=== PATIENT | female | born 2000 | race Caucasian/White ===

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

== ENCOUNTER 2019-04-03 17:59 | Emergency (ER) | payer SELFPAY ==
--- NOTE | 2019-04-03 19:24 | ER ---
Nurse's Notes [facility] Name: Yen Rojas Age: 19 yrs Sex: Female : 2000 Arrival Date: 04/03/2019 Time: 18:01 Bed 24 Private MD: Diagnosis: Acute upper respiratory infection, unspecified Presentation: 04/03 18:02 Presenting complaint: Patient states: nasal congestion, chills, congestion, non sv productive cough x 2 days. Transition of care: patient was not received from another setting of care. Onset of symptoms was April 01, 2019. Care prior to arrival: None. 18:02 Method Of Arrival: Ambulatory sv 18:02 Acuity: JONNY 4 sv 19:00 Risk Assessment: Do you want to hurt yourself or someone else? Patient reports no iw desire to harm self or others. Initial Sepsis Screen: Does the patient meet any 2 criteria? No. Patient's initial sepsis screen is negative. Does the patient have a suspected source of infection? No. Patient's initial sepsis screen is negative. Triage Assessment: 19:00 General: Appears in no apparent distress. Behavior is calm. Respiratory: Airway is iw patent. 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 - Social history:: Smoking status: . - Ebola Screening: : Patient negative for fever greater than or equal to 101.5 degrees Fahrenheit, and additional compatible Ebola Virus Disease symptoms Patient denies exposure to infectious person Patient denies travel to an Ebola-affected area in the 21 days before illness onset No symptoms or risks identified at this time. Screenin:35 Abuse screen: Denies threats or abuse. Denies injuries from another. Nutritional iw screening: No deficits noted. Tuberculosis screening: No symptoms or risk factors identified. Fall Risk None identified. Assessment: 19:00 General: Appears in no apparent distress. Behavior is calm, cooperative. Pain: Denies iw pain. Neuro: Level of Consciousness is awake, alert, obeys commands, Oriented to person, place, time, situation, Moves all extremities. Full function. Cardiovascular: Capillary refill < 3 seconds in bilateral fingers Patient's skin is warm and dry. Respiratory: Reports cough that is Airway is patent Breath sounds are clear bilaterally. Derm: Skin is intact, is healthy with good turgor. Musculoskeletal: Range of motion: intact in all extremities. Vital Signs: 18:03 BP 117 / 66; Pulse 87; Resp 16; Temp 98.4(TE); Pulse Ox 97% ; Weight 68.04 kg; Height 5 sv ft. 1 in. (154.94 cm); 18:03 Body Mass Index 28.34 (68.04 kg, 154.94 cm) sv ED Course: 18:01 Patient arrived in ED. as 18:02 Arm band placed on. sv 18:03 Triage completed. 18:06 Ubaldo Villegas PA is PHCP. [facility] 18:06 Remi Fernández MD is Attending Physician. [facility] 18:12 Jami Gregory, RN is Primary Nurse. iw 18:20 Bed in low position. Call light in reach. Side rails up X 1. Verbal reassurance given. jp3 Pulse ox on. NIBP on. 18:20 Flu and/or RSV swab sent to lab. Strep swab sent to lab. Patient maintains SpO2 jp3 saturation greater than 95% on room air. 19:35 No provider procedures requiring assistance completed. Patient did not have IV access iw during this emergency room visit. Administered Medications: No medications were administered Outcome: 19:24 Discharge ordered by . [facility] 19:35 Discharged to home ambulatory. iw 19:35 Condition: good 19:35 Discharge instructions given to patient, Instructed on discharge instructions, follow up and referral plans. medication usage, Demonstrated understanding of instructions, follow-up care, medications, Prescriptions given X 1. 19:36 Patient left the ED. iw Signatures: Marlyn Rodas, RN RN Ubaldo Villegas PA PA jmm Martinez, Amelia as Jami Gregory, RN RN Negrito Khan jp3 Corrections: (The following items were deleted from the chart) 18:05 18:03 Resp 16bpm; Temp 98.4F Temporal; 68.04 kg; Height 5 ft. 1 in.; BMI: 28.3; sv sv
--- NOTE | 2019-04-03 19:24 | EDPHYS ---
Physician Documentation [facility] Name: Yen Rojas Age: 19 yrs Sex: Female : 2000 Arrival Date: 04/03/2019 Time: 18:01 Bed 24 Private MD: ED Physician Remi Fernández HPI: 04/03 18:26 This 19 yrs old Female presents to ER via Ambulatory with complaints of jmm Cough, Congestion. 18:26 The patient or guardian reports cough. Onset: The symptoms/episode began/occurred jmm gradually, 2 day(s) ago. Modifying factors: The symptoms are alleviated by nothing, the symptoms are aggravated by nothing. Associated signs and symptoms: Pertinent positives: fever. This is a 19 year old female with no chronic medical conditions that presents to the ED with complaints of cough, congestion, fever beginning 2 days ago. Grandmother has similar symptoms and was recently diagnosed with bronchitis. . VP RESPIRATORY: 23:19 LMP N/A - iw Historical: - Allergies: 18:03 PENICILLINS; sv - PMHx: 18:03 None; sv - PSHx: 18:03 None; sv - Immunization history:: Adult Immunizations. - Social history:: Smoking status: . - Ebola Screening: : Patient negative for fever greater than or equal to 101.5 degrees Fahrenheit, and additional compatible Ebola Virus Disease symptoms Patient denies exposure to infectious person Patient denies travel to an Ebola-affected area in the 21 days before illness onset No symptoms or risks identified at this time. ROS: 18:26 Cardiovascular: Negative for chest pain, palpitations, and edema, Abdomen/GI: Negative jmm for abdominal pain, nausea, vomiting, diarrhea, and constipation. 18:26 Constitutional: Positive for body aches, fatigue, fever. 18:26 Respiratory: Positive for cough. 18:26 All other systems are negative. Exam: 18:26 Constitutional: This is a well developed, well nourished patient who is awake, alert, jmm and in no acute distress. Head/Face: atraumatic. Eyes: EOMI, no conjunctival erythema appreciated ENT: Moist Mucus Membranes Neck: Trachea midline, Supple Chest/axilla: Normal chest wall appearance and motion. Cardiovascular: Regular rate and rhythm. No edema appreciated Respiratory: Normal respirations, no respiratory distress appreciated Abdomen/GI: Non distended, soft Back: Normal ROM Skin: General appearance color normal MS/ Extremity: Moves all extremities, no obvious deformities appreciated, no edema noted to the lower extremities Neuro: Awake and alert, normal gait Psych: Behavior is normal, Mood is normal, Patient is cooperative and pleasant 18:26 ENT: Posterior pharynx: erythema, that is mild. Vital Signs: 18:03 BP 117 / 66; Pulse 87; Resp 16; Temp 98.4(TE); Pulse Ox 97% ; Weight 68.04 kg; Height 5 sv ft. 1 in. (154.94 cm); 18:03 Body Mass Index 28.34 (68.04 kg, 154.94 cm) sv MDM: 18:23 Patient medically screened. [facility] 19:23 Data reviewed: vital signs, nurses notes. Counseling: I had a detailed discussion with [facility] the patient and/or guardian regarding: the historical points, exam findings, and any diagnostic results supporting the discharge/admit diagnosis, lab results, the need for outpatient follow up, to return to the emergency department if symptoms worsen or persist or if there are any questions or concerns that arise at home. ED course: Patient is alert and non toxic in appearance in the ED. Patient advised to follow up with pcp and otherwise given strict return precautions. Patient understood and agrees with the plan of care. . 04/03 18:11 Order name: Flu; Complete Time: 19:23 [facility] 04/03 18:11 Order name: Strep; Complete Time: 18:36 [facility] 04/03 18:34 Order name: Throat Culture EDMS Administered Medications: No medications were administered Disposition: 04/04 07:18 Co-signature as Attending Physician, Remi Fernández MD. rn Disposition: 04/03/19 19:24 Discharged to Home. Impression: Acute upper respiratory infection, unspecified. - Condition is Stable. - Discharge Instructions: Upper Respiratory Infection, Adult. - Prescriptions for Zithromax Z- Rufus 250 mg Oral Tablet - take 1 tablet by ORAL route as directed for 5 days Day 1 - take two (2) tablets one time. Day 2, 3, 4 , 5 take one (1) tablet once daily.; 6 tablet. Medrol (Rufus) 4 mg Oral Tablets, Dose Pack - take 1 tablet by ORAL route as directed - follow package instructions; 1 packet. - Medication Reconciliation Form, Thank You Letter, Antibiotic Education, Prescription Opioid Use form. - Follow up: Private Physician; When: 2 - 3 days; Reason: Recheck today's complaints, Continuance of care, Re-evaluation by your physician. Signatures: Dispatcher [employer] Marlyn Regan RN RN Ubaldo Hicks PA PA jmm Williams, Irene, RN RN iw Nieto, Roman, MD MD rn admissions: (The following items were deleted from the chart) 04/03 19:36 19:24 04/03/2019 19:24 Discharged to Home. Impression: Acute upper respiratory iw infection, unspecified. Condition is Stable. Forms are Medication Reconciliation Form, Thank You Letter, Antibiotic Education, Prescription Opioid Use. Follow up: Private Physician; When: 2 - 3 days; Reason: Recheck today's complaints, Continuance of care, Re-evaluation by your physician. doris
[2019-04-03] MEDS ORDERED: AZITHROMYCIN 250 MG TAB ONE (19:37)
== END 2019-04-03 19:36 | disposition home or self-care (01) ==
LOC: ER 17:59
DX: J06.9 Acute upper respiratory infection, unspecified (principal); Z88.0 Allergy status to penicillin
CPT/HCPCS: 87070; 87081; 87804; 99284

== ENCOUNTER 2019-05-25 13:07 | Emergency (ER) | payer SELFPAY ==
[2019-05-25 14:07] LABS: Absolute Lymphocytes (CBC) 1.9 K/uL (0.7-4.9); Basophils % 0.8 % (0-1.3); Hematocrit 41.5 % (36.0-45.0); Lymphocytes % 28.5 % (15.3-44.8); MPV 10.1 fL (7.6-11.3); RBC Red Blood Cell Count 4.66 M/uL (3.86-4.86)
[2019-05-25 14:16] LABS: Protime INR 1.01
[2019-05-25 14:21] LABS: ALT/SGPT 24 U/L (12-78); AST/SGOT 17 U/L (15-37); Albumin 4.3 g/dL (3.4-5.0); Alkaline Phosphatase 76 U/L (45-117); BUN Blood Urea Nitrogen 5 mg/dL (7-18); Bicarbonate 27 mmol/L (21-32); Bilirubin Total 0.4 mg/dL (0.2-1.0); Glucose Level 120 mg/dL (74-106); Potassium 3.2 mmol/L (3.5-5.1); Protein, Total 7.9 g/dL (6.4-8.2); Sodium Level 141 mmol/L (136-145)
[2019-05-25] MEDS ORDERED: ACETAMINOPHEN 500 MG TAB ONE (15:05)
--- NOTE | 2019-05-25 15:08 | ER ---
Nurse's Notes [facility] Name: Yen Rojas Age: 19 yrs Sex: Female : 2000 Arrival Date: 05/25/2019 Time: 13:09 Bed 5 Private MD: Diagnosis: Other abnormal uterine and vaginal bleeding Presentation: 05/24 13:19 Chief complaint: Patient states: Heavy bleeding with clots x 3 days. Was on Depo and ca1 stopped 6 months ago. Reports no menstrual periods since Depo and after stopping until today. Reports abdominal cramps and nausea. Coronavirus screen: The patient has NOT traveled to [place] in the past 14 days. Ebola Screen: Patient negative for fever greater than or equal to 101.5 degrees Fahrenheit, and additional compatible Ebola Virus Disease symptoms Patient denies exposure to infectious person. Patient denies travel to an Ebola-affected area in the 21 days before illness onset. No symptoms or risks identified at this time. Initial Sepsis Screen: Does the patient meet any 2 criteria? No. Patient's initial sepsis screen is negative. Does the patient have a suspected source of infection? No. Patient's initial sepsis screen is negative. Risk Assessment: Do you want to hurt yourself or someone else? Patient reports no desire to harm self or others. Onset of symptoms was May 25, 2019. 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 - Social history:: Smoking status: Patient reports the use of cigarette tobacco products, smokes one-half pack cigarettes per day, Patient/guardian denies using alcohol, street drugs, The patient lives with family. - Family history:: not pertinent. Screenin:25 Abuse screen: Denies threats or abuse. Nutritional screening: No deficits noted. rb1 Tuberculosis screening: No symptoms or risk factors identified. Fall Risk None identified. Assessment: 13:25 General: Appears in no apparent distress. comfortable, Behavior is calm, cooperative. rb1 Pain: Complains of pain in abdomen Quality of pain is described as crampy. Neuro: Level of Consciousness is awake, alert, obeys commands, Oriented to person, place, time, situation. Cardiovascular: Capillary refill < 3 seconds is brisk in bilateral fingers. Respiratory: Airway is patent Respiratory effort is even, unlabored, Respiratory pattern is regular, symmetrical. GI: No signs and/or symptoms were reported involving the gastrointestinal system. : Reports vaginal bleeding that is with clots, heavy flow since x 3 days. Derm: Skin is pink, warm \T\ dry. 14:20 Reassessment: Patient appears in no apparent distress at this time. No changes from rb1 previously documented assessment. Family at the bedside. 15:10 Reassessment: Patient appears in no apparent distress at this time. Patient and/or rb1 family updated on plan of care and expected duration. Pain level reassessed. Patient is alert, oriented x 3, equal unlabored respirations, skin warm/dry/pink. Vital Signs: 13:19 BP 134 / 90; Pulse 80; Resp 17 S; Temp 97.1(O); Pulse Ox 100% on R/A; Weight 61.23 kg ca1 (R); Height 5 ft. 1 in. (154.94 cm) (R); 14:20 BP 115 / 91; Pulse 79; Resp 16; Pulse Ox 99% on R/A; rb1 15:10 BP 127 / 88; Pulse 74; Resp 15; Pulse Ox 99% on R/A; rb1 13:19 Body Mass Index 25.51 (61.23 kg, 154.94 cm) ca1 ED Course: 13:09 Patient arrived in ED. ag5 13:22 Triage completed. ca1 13:22 Arm band placed on right wrist. ca1 13:25 Patient has correct armband on for positive identification. Bed in low position. Call rb1 light in reach. Side rails up X 1. Pulse ox on. NIBP on. Warm blanket given. 13:27 Renuka Garcia MD is Attending Physician. ma2 13:39 Chari Cruz, ANIYAH is Primary Nurse. rb1 13:54 Initial lab(s) drawn, by me, sent to lab. T\T\S collected, blood band applied to patient. em1 Inserted saline lock: 20 gauge in right antecubital area, using aseptic technique. Blood collected. 15:07 Cody Coombs MD is Referral Physician. ma2 15:20 No provider procedures requiring assistance completed. IV discontinued, intact, rb1 bleeding controlled, No redness/swelling at site. Pressure dressing applied. Administered Medications: 15:03 Drug: Tylenol 1000 mg Route: PO; rb1 15:18 Follow up: Response: No adverse reaction rb1 Outcome: 15:08 Discharge ordered by MD. ma2 15:20 Discharged to home ambulatory, with family. rb1 15:20 Condition: stable 15:20 Discharge instructions given to patient, Instructed on discharge instructions, follow up and referral plans. medication usage, Demonstrated understanding of instructions, follow-up care, medications, Prescriptions given X 1. 15:21 Patient left the ED. rb1 Signatures: Papito Hickey em1 Chari Cruz, RN RN rb1 Renuka Garcia MD MD id2 Marichuy Davila RN RN ca1 Marleen Mendoza ag5
--- NOTE | 2019-05-25 15:09 | EDPHYS ---
Physician Documentation [facility] Name: Yen Rojas Age: 19 yrs Sex: Female : 2000 Arrival Date: 05/25/2019 Time: 13:09 Bed 5 Private MD: ED Physician Renuka Garcia HPI: 05/24 15:06 This 19 yrs old Female presents to ER via Ambulatory with complaints of ma2 Vaginal Bleeding. 15:06 Onset: The symptoms/episode began/occurred gradually, 3 day(s) ago. Associated signs ma2 and symptoms: Pertinent negatives: diarrhea, dysuria, hematuria, urinary frequency, vaginal bleeding. Severity of symptoms: At their worst the symptoms were mild, in the emergency department the symptoms have improved. The patient's method of control includes was on deposhot until 4 wks ago, she stopped, and took plan b 4 days ago . The patient has not experienced similar symptoms in the past. 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 - Social history:: Smoking status: Patient reports the use of cigarette tobacco products, smokes one-half pack cigarettes per day, Patient/guardian denies using alcohol, street drugs, The patient lives with family. - Family history:: not pertinent. ROS: 15:06 Positive for Negative for urinary symptoms. ma2 15:06 Constitutional: Negative for fever, chills, and weight loss. 15:06 All other systems are negative. Exam: 15:06 Constitutional: This is a well developed, well nourished patient who is awake, alert, ma2 and in no acute distress. Chest/axilla: Normal chest wall appearance and motion. Nontender with no deformity. No lesions are appreciated. Cardiovascular: Regular rate and rhythm with a normal S1 and S2. No gallops, murmurs, or rubs. Normal PMI, no JVD. No pulse deficits. Respiratory: Lungs have equal breath sounds bilaterally, clear to auscultation and percussion. No rales, rhonchi or wheezes noted. No increased work of breathing, no retractions or nasal flaring. Abdomen/GI: Soft, non-tender, with normal bowel sounds. No distension or tympany. No guarding or rebound. No evidence of tenderness throughout. Back: No spinal tenderness. No costovertebral tenderness. Full range of motion. Skin: Warm, dry with normal turgor. Normal color with no rashes, no lesions, and no evidence of cellulitis. MS/ Extremity: Pulses equal, no cyanosis. Neurovascular intact. Full, normal range of motion. Vital Signs: 13:19 BP 134 / 90; Pulse 80; Resp 17 S; Temp 97.1(O); Pulse Ox 100% on R/A; Weight 61.23 kg ca1 (R); Height 5 ft. 1 in. (154.94 cm) (R); 14:20 BP 115 / 91; Pulse 79; Resp 16; Pulse Ox 99% on R/A; rb1 15:10 BP 127 / 88; Pulse 74; Resp 15; Pulse Ox 99% on R/A; rb1 13:19 Body Mass Index 25.51 (61.23 kg, 154.94 cm) ca1 MDM: 13:27 Patient medically screened. ma2 15:06 Differential diagnosis: dysfunctional uterine bleeding, menorrhea, Data reviewed: vital ne2 signs, nurses notes. Counseling: I had a detailed discussion with the patient and/or guardian regarding: the historical points, exam findings, and any diagnostic results supporting the discharge/admit diagnosis, the presence of at least one elevated blood pressure reading (>120/80) during this emergency department visit, the need for outpatient follow up. Response to treatment: the patient's symptoms have markedly improved after treatment. 05/24 13:28 Order name: CBC with Diff; Complete Time: 15:00 ne2 05/24 13:28 Order name: Protime (+inr); Complete Time: 15:00 ne2 05/24 13:28 Order name: Ptt, Activated; Complete Time: 15:00 ma2 05/24 13:28 Order name: CMP ma2 05/24 13:28 Order name: Test, Serum; Complete Time: 15:00 ma2 05/24 13:28 Order name: HCG-Quantitative ne2 05/24 13:28 Order name: Urine Dipstick-Ancillary (obtain specimen); Complete Time: 14:05 [facility] 05/24 13:28 Order name: Type And Screen; Complete Time: 15:00 [facility] 05/24 14:05 Order name: Urine Dipstick--Ancillary (enter results) em1 05/24 14:05 Order name: Urine --Ancillary (enter results) em1 Administered Medications: 15:03 Drug: Tylenol 1000 mg Route: PO; rb1 15:18 Follow up: Response: No adverse reaction rb1 Disposition: 05/25/19 15:08 Discharged to Home. Impression: Other abnormal uterine and vaginal bleeding. - Condition is Stable. - Discharge Instructions: Abnormal Uterine Bleeding. - Prescriptions for Provera 5 mg Oral tablet - take 1 tablet by ORAL route once daily for 14 days; 14 tablet. - Medication Reconciliation Form, Thank You Letter, Antibiotic Education, Prescription Opioid Use form. - Follow up: Cody Coombs MD; When: Tomorrow; Reason: Continuance of care. Signatures: Dispatcher [employer] Chari Tucker RN RN rb1 Renuka Garcia MD MD ma2 Marichuy Davila RN RN ca1 Corrections: (The following items were deleted from the chart) 15:21 15:08 05/25/2019 15:08 Discharged to Home. Impression: Other abnormal uterine and rb1 vaginal bleeding. Condition is Stable. Forms are Medication Reconciliation Form, Thank You Letter, Antibiotic Education, Prescription Opioid Use. Follow up: Cody Coombs; When: Tomorrow; Reason: Continuance of care. ma2
[2019-05-25 15:59] LABS: HCG, Quantitative < 1 mIU/mL (1-3)
[2019-05-25 16:00] VITALS: TEMP 97.1
[2019-05-25 16:01] VITALS: O2SAT 99
[2019-05-25 16:02] VITALS: BP 127/88
[2019-05-25 17:48] LABS: Urine Blood 3+ (NEG); Urine Glucose NEGATIVE (NEG); Urine Protein NEGATIVE (NEG)
== END 2019-05-25 15:21 | disposition home or self-care (01) ==
LOC: ER 13:07
DX: N93.8 Other specified abnormal uterine and vaginal bleeding (principal); F17.210 Nicotine dependence, cigarettes, uncomplicated; Z88.0 Allergy status to penicillin
CPT/HCPCS: 36415; 80053; 81003; 81025; 84702; 84703; 85025; 85610; 85730; 86850; 86900; 86901; 99284

== ENCOUNTER 2019-07-12 01:10 | Emergency (ER) | payer SELFPAY ==
--- NOTE | 2019-07-12 01:42 | ER ---
Nurse's Notes [facility] Name: Yen Rojas Age: 19 yrs Sex: Female : 2000 Arrival Date: 07/12/2019 Time: 01:12 Bed 27 Private MD: Diagnosis: Acute pharyngitis Presentation: 07/11 01:24 Chief complaint: Patient states: SORE THROAT FOR TWO DAYS. NO FEVER BUT COMPLAINS OF rv CHILLS. DENIES COUGH OR SOB, NAUSEA AND VOMITING. Coronavirus screen: Proceed with normal triage. Ebola Screen: No symptoms or risks identified at this time. Initial Sepsis Screen: Does the patient meet any 2 criteria? No. Patient's initial sepsis screen is negative. Does the patient have a suspected source of infection? No. Patient's initial sepsis screen is negative. Risk Assessment: Do you want to hurt yourself or someone else? Patient reports no desire to harm self or others. Onset of symptoms was July 10, 2019 at 08:00. 01:24 Method Of Arrival: Ambulatory rv 01:24 Acuity: JONNY 4 rv Triage Assessment: :26 General: Appears uncomfortable, Behavior is calm, cooperative. Pain: Complains of pain rv in THROAT. EENT: Throat is reddened bilaterally. Neuro: Level of Consciousness is awake, alert, obeys commands, Oriented to person, place, time, situation. Cardiovascular: Patient's skin is warm and dry. Respiratory: Airway is patent Breath sounds are clear bilaterally. Derm: Skin is intact. DIRECTOR SYSTEMS: 01: LMP 06/21/2019 rv Historical: - Allergies: : PENICILLINS; rv - Home Meds: : None [Active]; rv - PMHx: : None; rv - PSHx: : None; rv - Immunization history:: Adult Immunizations up to date. - Social history:: Smoking status: Patient reports the use of cigarette tobacco products, smokes one-half pack cigarettes per day. Screenin:28 Abuse screen: Denies threats or abuse. Denies injuries from another. Nutritional rv screening: No deficits noted. Tuberculosis screening: No symptoms or risk factors identified. Fall Risk None identified. Assessment: : Respiratory: Respiratory effort is even, unlabored. rv Vital Signs: BP 114 / 84; Pulse 87; Resp 16; Temp 98.8; Pulse Ox 98% ; Weight 61.23 kg; Height 5 ft. rv 1 in. (154.94 cm); Pain 6/10; 02:14 BP 119 / 79; Pulse 89; Resp 17; Temp 98.5; Pulse Ox 99% on R/A; rv 01:24 Body Mass Index 25.51 (61.23 kg, 154.94 cm) rv ED Course: 01:12 Patient arrived in ED. ds1 01:14 Ubaldo Villegas PA is PHCP. m 01:14 Wagner Dominguez MD is Attending Physician. m 01:17 Wil Mahoney, ANIYAH is Primary Nurse. rv 01:26 Triage completed. rv 01:26 Arm band placed on Patient placed in the treatment room, on a stretcher, Patient rv notified of wait time. 01:28 Patient has correct armband on for positive identification. Pulse ox on. NIBP on. rv 01:28 No provider procedures requiring assistance completed. Strep swab sent to lab. Patient rv did not have IV access during this emergency room visit. Administered Medications: 01:46 Drug: Zofran (Ondansetron) 4 mg Route: PO; rv 02:13 Follow up: Response: No adverse reaction rv 01:46 Drug: Tylenol 650 mg Route: PO; rv 02:13 Follow up: Response: No adverse reaction rv 01:46 Drug: Decadron 10 mg Route: IM; Site: right deltoid; rv 02:13 Follow up: Response: No adverse reaction rv 02:03 Drug: Clindamycin 300 mg Route: PO; rv 02:13 Follow up: Response: Medication administered at discharge. rv Outcome: 01:42 Discharge ordered by . jmm 02:14 Discharged to home ambulatory. rv 02:14 Condition: good 02:14 Discharge instructions given to patient, Instructed on discharge instructions, follow up and referral plans. medication usage, Demonstrated understanding of instructions, follow-up care, medications, Prescriptions given X 1. 02:14 Patient left the ED. rv Signatures: Ubaldo Villegas PA PA jmm Sanford, Demi ds1 Wil Mahoney, RN RN rv
--- NOTE | 2019-07-12 01:42 | EDPHYS ---
Physician Documentation [facility] Name: Yen Rojas Age: 19 yrs Sex: Female : 2000 Arrival Date: 07/12/2019 Time: 01:12 Bed 27 Private MD: ED Physician Wagner Dominguez HPI: 07/11 01:37 This 19 yrs old Female presents to ER via Ambulatory with complaints of Sore jmm Throat. 01:37 The patient presents with sore throat. Onset: The symptoms/episode began/occurred jmm gradually, 2 day(s) ago. Modifying factors: The symptoms are alleviated by nothing, the symptoms are aggravated by fluids, foods. Associated signs and symptoms: Pertinent positives: chills. This is a 19 year old female with no chronic medical conditions that presents to the ED with complaints of sore throat, chills beginning 2 days ago. Patient states having difficulty with food and fluids. . 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 - Social history:: Smoking status: Patient reports the use of cigarette tobacco products, smokes one-half pack cigarettes per day. ROS: 01:37 Eyes: Negative for injury, pain, redness, and discharge. jmm 01:37 Constitutional: Positive for body aches, chills. 01:37 ENT: Positive for sore throat. 01:37 All other systems are negative. Exam: 01:37 Constitutional: This is a well developed, well nourished patient who is awake, alert, jmm and in no acute distress. Head/Face: atraumatic. Eyes: EOMI, no conjunctival erythema appreciated 01:37 Chest/axilla: Normal chest wall appearance and motion. Cardiovascular: Regular rate and rhythm. No edema appreciated Respiratory: Normal respirations, no respiratory distress appreciated Abdomen/GI: Non distended, soft Back: Normal ROM Skin: General appearance color normal MS/ Extremity: Moves all extremities, no obvious deformities appreciated, no edema noted to the lower extremities Neuro: Awake and alert, normal gait Psych: Behavior is normal, Mood is normal, Patient is cooperative and pleasant 01:37 ENT: Posterior pharynx: Airway: normal, erythema, that is moderate, exudate, that is moderate, peritonsillar mass, is not appreciated. 01:37 Neck: Lymph nodes: lymphadenopathy is appreciated, anterior cervical nodes. Vital Signs: 01:24 BP 114 / 84; Pulse 87; Resp 16; Temp 98.8; Pulse Ox 98% ; Weight 61.23 kg; Height 5 ft. rv 1 in. (154.94 cm); Pain 6/10; 02:14 BP 119 / 79; Pulse 89; Resp 17; Temp 98.5; Pulse Ox 99% on R/A; rv 01:24 Body Mass Index 25.51 (61.23 kg, 154.94 cm) rv MDM: 01:32 Patient medically screened. [facility] 01:40 Data reviewed: vital signs, nurses notes. Counseling: I had a detailed discussion with myriam the patient and/or guardian regarding: the historical points, exam findings, and any diagnostic results supporting the discharge/admit diagnosis, lab results, the need for outpatient follow up, to return to the emergency department if symptoms worsen or persist or if there are any questions or concerns that arise at home. ED course: Patient is alert and non toxic in appearance in the ED. Patient is advised to follow up with pcp and otherwise given strict return precautions. Patient understood and agrees with the plan of care. . 07/11 01:18 Order name: Strep; Complete Time: 01:43 [facility] 07/11 01:44 Order name: Throat Culture EDMS Administered Medications: 01:46 Drug: Zofran (Ondansetron) 4 mg Route: PO; rv 02:13 Follow up: Response: No adverse reaction rv 01:46 Drug: Tylenol 650 mg Route: PO; rv 02:13 Follow up: Response: No adverse reaction rv 01:46 Drug: Decadron 10 mg Route: IM; Site: right deltoid; rv 02:13 Follow up: Response: No adverse reaction rv 02:03 Drug: Clindamycin 300 mg Route: PO; rv 02:13 Follow up: Response: Medication administered at discharge. rv Disposition: 07/12/19 01:42 Discharged to Home. Impression: Acute pharyngitis. - Condition is Stable. - Discharge Instructions: Pharyngitis. - Prescriptions for Clindamycin HCl 300 mg Oral Capsule - take 1 capsule by ORAL route every 6 hours for 10 days; 40 capsule. - Medication Reconciliation Form, Thank You Letter, Antibiotic Education, Prescription Opioid Use, Work release form form. - Follow up: Private Physician; When: 2 - 3 days; Reason: Recheck today's complaints, Continuance of care, Re-evaluation by your physician. Addendum: 07/13/2019 10:00 Co-signature as Attending Physician, Wagner Dominguez MD I agree with the assessment and t w4 plan of care. Signatures: Dispatcher [employer] EDMS Ubaldo Villegas PA PA jmm Wadley, Terrence, MD MD tw4 Wil Mahoney RN RN rv Corrections: (The following items were deleted from the chart) 07/11 02:14 01:42 07/12/2019 01:42 Discharged to Home. Impression: Acute pharyngitis. Condition is rv Stable. Forms are Medication Reconciliation Form, Thank You Letter, Antibiotic Education, Prescription Opioid Use. Follow up: Private Physician; When: 2 - 3 days; Reason: Recheck today's complaints, Continuance of care, Re-evaluation by your physician. doris
[2019-07-12] MEDS ORDERED: ACETAMINOPHEN 325 MG TABLET ONE (01:46)
[2019-07-12] MEDS ORDERED: ONDANSETRON 4 MG (ODT) TAB ONE (01:47)
[2019-07-12] MEDS ORDERED: dexAMETHasone 10 MG/ML VIAL ONE (01:47)
[2019-07-12 02:27] VITALS: BP 119/79; TEMP 98.5; O2SAT 99
== END 2019-07-12 02:14 | disposition home or self-care (01) ==
LOC: ER 01:10
DX: J02.9 Acute pharyngitis, unspecified (principal); F17.210 Nicotine dependence, cigarettes, uncomplicated; Z88.0 Allergy status to penicillin
CPT/HCPCS: 87070; 87081; 96372; 99284; J1100

== ENCOUNTER 2019-08-25 13:18 | Emergency (ER) | payer SELFPAY ==
[2019-08-25 14:19] LABS: Urine Blood TRACE (NEG); Urine Glucose NEGATIVE (NEG); Urine Protein NEGATIVE (NEG); Urine Specific Gravity 1.025 (1.005-1.030)
--- NOTE | 2019-08-25 15:53 | ER ---
Nurse's Notes [facility] Name: Yen Rojas Age: 19 yrs Sex: Female : 2000 Arrival Date: 08/25/2019 Time: 13:20 Bed Waiting Private MD: Diagnosis: Presentation: 08/24 13:23 Chief complaint: Patient states: burning with urination, suprapubic pain x 2 days. sv Taking Azo. Report blood when she wipes and vaginal discharge. Coronavirus screen: Proceed with normal triage. Patient denies a cough. Patient denies shortness of breath or difficulty breathing. Patient denies measured and/or subjective temperature greater than 100.4F prior to today's visit. Patient denies travel on a cruise ship or to a country [facility] currently lists as an affected area. Patient denies contact with known and/or suspected case of COVID-19. Ebola Screen: No symptoms or risks identified at this time. Risk Assessment: Do you want to hurt yourself or someone else? Patient reports no desire to harm self or others. Onset of symptoms was August 23, 2019. 13:23 Method Of Arrival: Ambulatory sv 13:23 Acuity: JONNY 4 sv 13:25 Initial Sepsis Screen: Does the patient meet any 2 criteria? No. Patient's initial sv sepsis screen is negative. Does the patient have a suspected source of infection? Yes: Dysuria/Frequency/Urgency/UTI. Triage Assessment: 13:27 General: Appears in no apparent distress. comfortable, Behavior is calm, cooperative, sv appropriate for age. Neuro: Level of Consciousness is awake, alert, obeys commands, Oriented to person, place, time, situation, Gait is steady. : Reports burning with urination, discharge. Historical: - Allergies: 13:24 PENICILLINS; sv - PMHx: 13:24 None; sv - PSHx: 13:24 None; sv - Immunization history:: Adult Immunizations up to date. - Social history:: Smoking status: Reported history of juuling and/or vaping. Vital Signs: 13:25 BP 112 / 86; Pulse 73; Resp 14; Temp 98.4; Pulse Ox 100% ; Weight 61.23 kg; Height 5 sv ft. 1 in. (154.94 cm); 13:25 Body Mass Index 25.51 (61.23 kg, 154.94 cm) sv ED Course: 13:20 Patient arrived in ED. ag5 13:23 Triage completed. sv 13:23 Arm band placed on. sv Administered Medications: No medications were administered Outcome: 15:53 Patient left the ED. sv Signatures: Marlyn Rodas RN RN sv Marelen Mendoza ag5 Corrections: (The following items were deleted from the chart) 13:25 13:23 Chief complaint: Patient states: burning with urination, suprapubic pain x 2 sv days. Taking Azo sv 13:27 13:25 Pulse 73bpm; Resp 14bpm; Pulse Ox 100%; Temp 98.4F; 61.23 kg; Height 5 ft. 1 in.; sv BMI: 25.5; sv
[2019-08-25 15:58] VITALS: BP 112/86; TEMP 98.4; O2SAT 100
== END 2019-08-25 15:53 | disposition left against medical advice (07) ==
LOC: ER 13:18
DX: Z53.21 Procedure and treatment not carried out due to patient leaving prior to being seen by health care provider (principal)
CPT/HCPCS: 81003; 81025; 99281

== ENCOUNTER 2020-08-23 17:00 | Emergency (ER) | payer SELFPAY ==
[2020-08-23 17:55] LABS: Urine Blood 1+ (Negative); Urine Glucose Negative (Negative); Urine Protein 2+ (Negative); Urine pH 7.5 (5.0-7.0)
[2020-08-23 18:26] LABS: Urine Bacteria <20 /HPF (<20); Urine RBC <5 /HPF (NONE SEEN)
--- NOTE | 2020-08-23 18:31 | EDPHYS ---
Physician Documentation [facility] Name: Yen Rojas Age: 20 yrs Sex: Female : 2000 Arrival Date: 08/23/2020 Time: 17:05 Bed Waiting Private MD: ED Physician Wagner Dominguez HPI: 08/23 17:58 This 20 yrs old Female presents to ER via Ambulatory with complaints of Low kb Back Pain, Rash, Vaginal Pain. 17:58 The patient presents with urinary symptoms, dysuria, frequency. Onset: The kb symptoms/episode began/occurred yesterday. Modifying factors: The symptoms are alleviated by nothing, the symptoms are aggravated by urinating. Associated signs and symptoms: Pertinent positives: dysuria, urinary frequency, "bladder pain". Severity of symptoms: At their worst the symptoms were moderate, in the emergency department the symptoms are unchanged. The patient has experienced similar episodes in the past, several times. The patient has not recently seen a physician. Pt states she believes she has a UTI. Has had several before and is having the exact same symptoms. Historical: - Allergies: 17:46 PENICILLINS; ph - PSHx: 17:46 None; ph - Immunization history:: Adult Immunizations unknown. - Social history:: Smoking status: Reported history of juuling and/or vaping. ROS: 17:56 Constitutional: Negative for fever, chills, and weight loss. kb 17:56 Abdomen/GI: Positive for abdominal pain, of the suprapubic area. 17:56 : Positive for urinary symptoms, pelvic pain, urinary frequency, small amounts, burning with urination, Negative for hematuria, flank pain. 17:56 All other systems are negative. Exam: 17:56 Constitutional: This is a well developed, well nourished patient who is awake, alert, kb and in no acute distress. Head/Face: Normocephalic, atraumatic. ENT: Moist Mucous membranes Respiratory: Respirations even and unlabored. No increased work of breathing, no retractions or nasal flaring. Skin: Warm, dry with normal turgor. Normal color. MS/ Extremity: Pulses equal, no cyanosis. Neurovascular intact. Full, normal range of motion. Neuro: Awake and alert, GCS 15, oriented to person, place, time, and situation. Moves all extremities. Normal gait. Psych: Awake, alert, with orientation to person, place and time. Behavior, mood, and affect are within normal limits. 17:56 Abdomen/GI: Inspection: abdomen appears normal, Bowel sounds: normal, Palpation: soft, in all quadrants, nontender, in all quadrants, mild abdominal tenderness, in the suprapubic area. Vital Signs: 17:41 BP 126 / 94; Pulse 96; Resp 18; Temp 98.1; Pulse Ox 98% on R/A; Weight 51.26 kg; Height ph 5 ft. 1 in. (154.94 cm); 17:41 Body Mass Index 21.35 (51.26 kg, 154.94 cm) ph MDM: 17:45 Patient medically screened. kb 17:57 Data reviewed: vital signs, nurses notes. Data interpreted: Pulse oximetry: on room air kb is 98 %. Interpretation: normal. Counseling: I had a detailed discussion with the patient and/or guardian regarding: the historical points, exam findings, and any diagnostic results supporting the discharge/admit diagnosis, lab results, the need for outpatient follow up, a family practitioner, to return to the emergency department if symptoms worsen or persist or if there are any questions or concerns that arise at home. 08/23 17:46 Order name: Urine Microscopic Only; Complete Time: 18:29 kb 08/23 17:54 Order name: Urine Dipstick-Ancillary; Complete Time: 18:00 [facility] 08/23 17:57 Order name: Urine --Ancillary (enter results) 08/23 18:27 Order name: Urine Culture [facility] 08/23 17:46 Order name: Urine Test (obtain specimen); Complete Time: 19:40 kb 08/23 17:46 Order name: Urine Dipstick-Ancillary (obtain specimen); Complete Time: 19:41 kb Administered Medications: 18:56 Drug: Macrobid (nitrofurantoin) 100 mg Route: PO; ph 19:41 Follow up: Response: No adverse reaction ph 18:56 Drug: Pyridium (phenazopyridine) 200 mg Route: PO; ph 19:41 Follow up: Response: No adverse reaction ph Disposition: 08/23/20 18:31 Discharged to Home. Impression: Urinary tract infection, site not specified. - Condition is Stable. - Discharge Instructions: Urinary Tract Infection, Adult, [id number]. - Prescriptions for Pyridium 200 mg Oral Tablet - take 1 tablet by ORAL route every 8 hours for 3 days; 9 tablet. Macrobid 100 mg Oral Capsule - take 1 capsule by ORAL route every 12 hours for 10 days; 20 capsule. - Medication Reconciliation Form, Thank You Letter, Antibiotic Education, Prescription Opioid Use form. - Follow up: Emergency Department; When: As needed; Reason: Worsening of condition. Follow up: Private Physician; When: 2 - 3 days; Reason: Recheck today's complaints, Continuance of care, Re-evaluation by your physician. Signatures: Dispatcher [employer] EDMS Christa Singh, TRAVEL MED SURG RN-C TRAVEL MED SURG RN-Essie Melchor RN RN ph Corrections: (The following items were deleted from the chart) 18:57 18:31 08/23/2020 18:31 Discharged to Home. Impression: Urinary tract infection, site ph not specified. Condition is Stable. Forms are Medication Reconciliation Form, Thank You Letter, Antibiotic Education, Prescription Opioid Use. Follow up: Emergency Department; When: As needed; Reason: Worsening of condition. Follow up: Private Physician; When: 2 - 3 days; Reason: Recheck today's complaints, Continuance of care, Re-evaluation by your physician. kb
--- NOTE | 2020-08-23 18:31 | ER ---
Nurse's Notes [facility] Name: Yen Rojas Age: 20 yrs Sex: Female : 2000 Arrival Date: 08/23/2020 Time: 17:05 Bed Waiting Private MD: Diagnosis: Urinary tract infection, site not specified Presentation: 08/23 17:41 Chief complaint: Patient states: Urinary frequency, burning with urination, suprapubic ph pain x 2 days. Coronavirus screen: At this time, the client does not indicate any symptoms associated with coronavirus-19. Ebola Screen: No symptoms or risks identified at this time. Initial Sepsis Screen: Does the patient meet any 2 criteria? No. Patient's initial sepsis screen is negative. Does the patient have a suspected source of infection? No. Patient's initial sepsis screen is negative. Risk Assessment: Do you want to hurt yourself or someone else? Patient reports no desire to harm self or others. Onset of symptoms was August 23, 2020. 17:41 Method Of Arrival: Ambulatory ph 17:41 Acuity: JONNY 4 ph Historical: - Allergies: 17:46 PENICILLINS; ph - PSHx: 17:46 None; ph - Immunization history:: Adult Immunizations unknown. - Social history:: Smoking status: Reported history of juuling and/or vaping. Screenin:40 Abuse screen: Denies threats or abuse. Denies injuries from another. Nutritional ph screening: No deficits noted. Tuberculosis screening: No symptoms or risk factors identified. Fall Risk None identified. Assessment: 18:45 General: Appears in no apparent distress. uncomfortable, slender, Behavior is calm, ph cooperative, appropriate for age, Denies fever. Pain: Complains of pain in suprapubic area. Neuro: Level of Consciousness is awake, alert, obeys commands, Oriented to person, place, time, situation. Cardiovascular: No deficits noted. Respiratory: No deficits noted. : Reports burning with urination, pain in suprapubic area urinary frequency. Derm: Skin is intact, is healthy with good turgor, Skin is pink, warm \T\ dry. Vital Signs: 17:41 BP 126 / 94; Pulse 96; Resp 18; Temp 98.1; Pulse Ox 98% on R/A; Weight 51.26 kg; Height ph 5 ft. 1 in. (154.94 cm); 17:41 Body Mass Index 21.35 (51.26 kg, 154.94 cm) ph ED Course: 17:05 Patient arrived in ED. ds1 17:45 Christa Singh FNP-C is [facility]. kb 17:45 Wagner Dominguez MD is Attending Physician. kb 17:46 Triage completed. ph 17:47 Arm band placed on right wrist. ph 18:45 Patient has correct armband on for positive identification. ph 18:55 No provider procedures requiring assistance completed. Patient did not have IV access ph during this emergency room visit. 18:57 Essie Sanchez, RN is Primary Nurse. ph Administered Medications: 18:56 Drug: Macrobid (nitrofurantoin) 100 mg Route: PO; ph 19:41 Follow up: Response: No adverse reaction ph 18:56 Drug: Pyridium (phenazopyridine) 200 mg Route: PO; ph 19:41 Follow up: Response: No adverse reaction ph Outcome: 18:31 Discharge ordered by MD. kb 18:57 Patient left the ED. ph 18:57 Discharged to home ambulatory. ph 18:57 Condition: good 18:57 Discharge instructions given to patient, Instructed on discharge instructions, follow up and referral plans. medication usage, Demonstrated understanding of instructions, follow-up care, medications, Prescriptions given X 2. Addendum: 08/27/2020 14:51 Addendum: Culture Results: Positive urine culture. Phone call Attempt #1 left [email or web address].h b Signatures: Christa Singh FNP-C FNP-Ckb San[place], Demi ds1 Essie Sanchez RN RN Heena Martin RN RN
[2020-08-23 19:04] VITALS: BP 126/94; TEMP 98.1; O2SAT 98
[2020-08-23] MEDS ORDERED: NITROFURAN MACRO 100 MG CAP PO ONE (19:12)
[2020-08-23] MEDS ORDERED: PHENAZOPYRIDINE 100MG TAB PO ONE (19:13)
== END 2020-08-23 18:57 | disposition home or self-care (01) ==
LOC: ER 17:00
DX: N39.0 Urinary tract infection, site not specified (principal); Z88.0 Allergy status to penicillin
CPT/HCPCS: 81003; 81015; 81025; 87077; 87086; 87088; 87186; 99283

== ENCOUNTER 2020-08-26 13:24 | Emergency (ER) | payer SELFPAY ==
[2020-08-26 14:44] LABS: Urine Blood Trace-intact (Negative); Urine Glucose Negative (Negative); Urine Protein Negative (Negative)
[2020-08-26] MEDS ORDERED: ONDANSETRON 4 MG (ODT) TAB ONE (15:08)
[2020-08-26] MEDS ORDERED: HYDROCODONE/APAP 5/325 MG TAB ONE (15:08)
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
[2020-08-26 16:04] VITALS: TEMP 98.5
[2020-08-26 16:07] VITALS: BP 120/70; O2SAT 100
== END 2020-08-26 16:00 | disposition home or self-care (01) ==
LOC: ER 13:24
DX: S00.83XA Contusion of other part of head, initial encounter (principal); Y04.2XXA Assault by strike against or bumped into by another person, initial encounter; Z88.0 Allergy status to penicillin
CPT/HCPCS: 70450; 70486; 72125; 76377; 81003; 81025; 99284

== ENCOUNTER 2020-10-20 00:17 | Emergency (ER) | payer OTHER, SELFPAY ==
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
[2020-10-20 05:25] VITALS: TEMP 98.8
[2020-10-20 05:27] VITALS: BP 105/67; O2SAT 98
--- NOTE | 2020-10-20 09:19 | RAD REPORT ---
EXAM DESCRIPTION: RAD - Facial Bones <3 Views - 10/20/2020 1:59 am CLINICAL HISTORY: Facial pain FINDINGS: No fracture is seen. Fluid is not visualized within the sinuses. If patient continues have symptoms to suggest an occult fracture CT would be recommended.
--- NOTE | 2020-10-20 09:20 | RAD REPORT ---
EXAM DESCRIPTION: RAD - Lumbar Spine 3 Views - 10/20/2020 1:59 am CLINICAL HISTORY: Back pain FINDINGS: No fracture or dislocation seen
== END 2020-10-20 03:01 | disposition home or self-care (01) ==
LOC: ER 00:17
DX: M54.5 Low back pain (principal); V89.2XXA Person injured in unspecified motor-vehicle accident, traffic, initial encounter
CPT/HCPCS: 70140; 72100; 99284

== ENCOUNTER 2022-04-26 16:45 | Emergency (ER) | payer SELFPAY ==
--- NOTE | 2022-04-26 17:30 | ER ---
Nurse's Notes [facility] Name: Yen Rojas Age: 22 yrs Sex: Female : 2000 Arrival Date: 04/26/2022 Time: 16:49 Bed IW5 Private MD: Diagnosis: Rash and other nonspecific skin eruption;Dermatitis, unspecified Presentation: 04/26 17:24 Chief complaint: Patient states: I have a rash all over my body and its not getting any ko1 better. Coronavirus screen: At this time, the client does not indicate any symptoms associated with coronavirus-19. Ebola Screen: No symptoms or risks identified at this time. Initial Sepsis Screen: Does the patient meet any 2 criteria? No. Patient's initial sepsis screen is negative. Does the patient have a suspected source of infection? No. Patient's initial sepsis screen is negative. Risk Assessment: Do you want to hurt yourself or someone else? Patient reports no desire to harm self or others. Onset of symptoms was April 26, 2022. 17:24 Method Of Arrival: Ambulatory ko1 17:24 Acuity: JONNY 4 ko1 Triage Assessment: 17:25 General: Appears in no apparent distress. comfortable, Behavior is calm, cooperative, ko1 appropriate for age. Pain: Denies pain. 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 - Social history:: Smoking status: Patient denies any tobacco usage or history of. - Family history:: not pertinent. - Hospitalizations: : No recent hospitalization is reported. Screenin:35 [facility] ED Fall Risk Assessment (Adult) History of falling in the last 3 months, ko1 including since admission No falls in past 3 months (0 pts) Confusion or Disorientation No (0 pts) Intoxicated or Sedated No (0 pts) Impaired Gait No (0 pts) Mobility Assist Device Used No (0 pt) Altered Elimination No (0 pt) Score/Fall Risk Level 0 - 2 = Low Risk Oriented to surroundings, Maintained a safe environment, Educated pt \T\ family on fall prevention, incl call for assistance when getting out of bed, Assessed \T\ reinforced patient's understanding of fall precautions, Provided non-skid footwear, Hourly rounding (assess needs \T\ fall precautionary measures) done, Used ambulatory aids as needed (educated on \T\ assisted with), Used gait belt as appropriate. Abuse screen: Denies threats or abuse. Denies injuries from another. Nutritional screening: No deficits noted. Tuberculosis screening: No symptoms or risk factors identified. Vital Signs: 17:24 BP 116 / 79; Pulse 91; Resp 16; Temp 97.9; Pulse Ox 98% ; Weight 56.7 kg; Height 5 ft. ko1 1 in. (154.94 cm); Pain 0/10; 17:24 Body Mass Index 23.62 (56.70 kg, 154.94 cm) ko1 ED Course: 16:49 Patient arrived in ED. am2 17:08 Remi Fernández MD is Attending Physician. rn 17:25 Triage completed. ko1 17:25 Arm band placed on right wrist. ko1 17:35 Aixa Grace, RN is Primary Nurse. ko1 17:35 Patient has correct armband on for positive identification. ko1 17:35 No provider procedures requiring assistance completed. Patient did not have IV access ko1 during this emergency room visit. Administered Medications: No medications were administered Medication: 17:35 VIS not applicable for this client. ko1 Outcome: 17:30 Discharge ordered by . rn 17:35 Discharged to home ambulatory. ko1 17:35 Condition: stable 17:35 Discharge instructions given to patient, Instructed on discharge instructions, follow up and referral plans. medication usage, Demonstrated understanding of instructions, follow-up care, medications, Prescriptions given X 1. 17:37 Patient left the ED. ko1 Signatures: Remi Fernández MD MD rn Moreno, Amanda am2 Aixa Grace, RN RN ko1
--- NOTE | 2022-04-26 17:30 | EDPHYS ---
Physician Documentation [facility] Name: Yen Rojas Age: 22 yrs Sex: Female : 2000 Arrival Date: 04/26/2022 Time: 16:49 Bed IW5 Private MD: ED Physician Remi Fernández HPI: 04/26 17:30 This 22 yrs old Female presents to ER via Ambulatory with complaints of Rash. rn 17:30 The patient's rash thought to be caused by an unknown cause. The rash is located on the rn back, abdomen, right arm and left arm. The rash can be described as erythematous, papular. Onset: The symptoms/episode began/occurred 2 week(s) ago. Associated signs and symptoms: Pertinent positives: itching, Pertinent negatives: burning sensation, difficulty breathing, fever. Severity of symptoms: At their worst the symptoms were mild in the emergency department the symptoms are unchanged. The patient has not experienced similar symptoms in the past. The patient has not recently seen a physician. Significant other with same rash.. 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 - Social history:: Smoking status: Patient denies any tobacco usage or history of. - Family history:: not pertinent. - Hospitalizations: : No recent hospitalization is reported. ROS: 17:30 Constitutional: Negative for fever, chills, and weight loss, Skin: + rash rn Exam: 17:30 Constitutional: This is a well developed, well nourished patient who is awake, alert, rn and in no acute distress. Skin: Erythematous papular rash over arms/hands/torso, no bullae, no fluctuance, no pustules, crosses midline. + multiple excoriations. Vital Signs: 17:24 BP 116 / 79; Pulse 91; Resp 16; Temp 97.9; Pulse Ox 98% ; Weight 56.7 kg; Height 5 ft. ko1 1 in. (154.94 cm); Pain 0/10; 17:24 Body Mass Index 23.62 (56.70 kg, 154.94 cm) ko1 MDM: 17:08 Patient medically screened. rn 17:30 Differential diagnosis: allergic reaction, parasite infection, dermatitis. Data rn reviewed: vital signs, nurses notes, and as a result, I will discharge patient. Counseling: I had a detailed discussion with the patient and/or guardian regarding: the historical points, exam findings, and any diagnostic results supporting the discharge/admit diagnosis, the need for outpatient follow up, to return to the emergency department if symptoms worsen or persist or if there are any questions or concerns that arise at home. Special discussion: I discussed with the patient/guardian in detail that at this point there is no indication for admission to the hospital. It is understood, however, that if the symptoms persist or worsen the patient needs to return immediately for re-evaluation. 17:38 ED course: Pt reports in early .. 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
[2022-04-26 18:00] VITALS: BP 116/79; TEMP 97.9; O2SAT 98
== END 2022-04-26 17:37 | disposition home or self-care (01) ==
LOC: ER 16:45
DX: L30.9 Dermatitis, unspecified (principal); Z88.0 Allergy status to penicillin
CPT/HCPCS: 99282

== ENCOUNTER 2022-07-16 13:17 | Emergency (ER) | payer OTHER ==
--- NOTE | 2022-07-16 14:20 | EDPHYS ---
Physician Documentation [facility] Name: Yen Rojas Age: 22 yrs Sex: Female : 2000 Arrival Date: 07/16/2022 Time: 13:17 Bed IW10 Private MD: ED Physician Remi Fernández HPI: 07/16 14:15 This 22 yrs old Female presents to ER via Ambulatory with complaints of Drug Withdrawal.rn 14:15 Pt reports mild alcohol withdrawal, from opiates, last use was yesterday, tried to sign rn in to rehab but no beds, came here to see if could get help. Reports chills, nausea, shaking, diarrhea, and fatigue. . Onset: The symptoms/episode began/occurred today. Severity of symptoms: At their worst the symptoms were moderate in the emergency department the symptoms are unchanged. The patient has experienced similar episodes in the past. The patient has not recently seen a physician. 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 - Social history:: Smoking status: Reported history of juuling and/or vaping. Patient uses street drugs, fentanyl . - Family history:: not pertinent. - Hospitalizations: : No recent hospitalization is reported. ROS: 14:15 Constitutional: Negative for fever, chills, and weight loss, Eyes: Negative for injury, rn pain, redness, and discharge, Neck: Negative for injury, pain, and swelling, Cardiovascular: Negative for chest pain, palpitations, and edema, Respiratory: Negative for shortness of breath, cough, wheezing, and pleuritic chest pain, Abdomen/GI: Negative for abdominal pain, vomiting, diarrhea, and constipation, MS/Extremity: Negative for injury and deformity, Skin: Negative for injury, rash, and discoloration, Neuro: Negative for headache, numbness, tingling, and seizure. Exam: 14:15 Constitutional: This is a well developed, well nourished patient who is awake, alert, rn and in no acute distress. Head/Face: Normocephalic, atraumatic. Cardiovascular: Regular rate and rhythm. No pulse deficits. Respiratory: No increased work of breathing, no retractions or nasal flaring. Abdomen/GI: soft, non-tender Skin: Warm, dry MS/ Extremity: Pulses equal, no cyanosis. Neuro: Awake and alert, GCS 15 Vital Signs: 13:35 BP 116 / 85; Pulse 98; Resp 19; Temp 98.2; Pulse Ox 100% ; Weight 50.8 kg; Height 5 ft. ap3 1 in. ; Pain 9/10; 13:35 Body Mass Index 21.16 (50.80 kg, 154.94 cm) ap3 13:35 Pain Scale: Adult ap3 MDM: 13:40 Patient medically screened. rn 14:15 Differential Diagnosis drug withdrawal, opiate withdrawal. . Data reviewed: vital rn signs, nurses notes, and as a result, I will discharge patient. Counseling: I had a detailed discussion with the patient and/or guardian regarding: the historical points, exam findings, and any diagnostic results supporting the discharge/admit diagnosis, the need for outpatient follow up, to return to the emergency department if symptoms worsen or persist or if there are any questions or concerns that arise at home. Response to treatment: the patient's symptoms have mildly improved after treatment, and as a result, I will discharge patient. ED course: Pt states would rather go home and return if worsens, states has had buprenorphine before and helped her through it, spoke with her about risks and benefits, will prescribe only 2mg tablets, 8 tablets to be spread over next few days to help with withdrawal. Patient thankful and appreciative. . 14:20 ED course: COunseling and treatment of opioid dependence and withdrawal completed with rn patient. . Administered Medications: No medications were administered Disposition Summary: 07/16/22 14:19 Discharge Ordered Location: Home rn Problem: new rn Symptoms: have improved rn Condition: Stable rn Diagnosis - Opioid dependence with withdrawal - mild rn Followup: rn - With: Private Physician - When: 2 - 3 days - Reason: Recheck today's complaints, Re-evaluation by your physician Discharge Instructions: - Discharge Summary Sheet rn - Opioid Withdrawal rn - Opioid Withdrawal Treatment rn Forms: - Medication Reconciliation Form rn - Thank You Letter rn - Antibiotic rn obgyn - Prescription Opioid Use rn Prescriptions: - BUPRENORPHINE - take 1 tablet by SUBLINGUAL route every 6-8 hours As needed; 8 tablet; Refills: rn 0, Product Selection Permitted Signatures: Remi Fernández MD MD rn Prokisch, Amanda, RN RN ap3
--- NOTE | 2022-07-16 14:20 | ER ---
Nurse's Notes [facility] Name: Yen Rojas Age: 22 yrs Sex: Female : 2000 Arrival Date: 07/16/2022 Time: 13:17 Bed IW10 Private MD: Diagnosis: Opioid dependence with withdrawal-mild Presentation: 07/16 13:35 Chief complaint: Patient states: she has been using fentanyl and is trying to come off ap3 of it but when she called to get into rehab, they told her to come to the ER because withdrawal can be dangerous. patient complains of nausea, vomiting, and restlessness. patient states the last time she used fentanyl was yesterday. Coronavirus screen: At this time, the client does not indicate any symptoms associated with coronavirus-19. Ebola Screen: No symptoms or risks identified at this time. Initial Sepsis Screen: Does the patient meet any 2 criteria? No. Patient's initial sepsis screen is negative. Does the patient have a suspected source of infection? No. Patient's initial sepsis screen is negative. Risk Assessment: Do you want to hurt yourself or someone else? Patient reports no desire to harm self or others. Onset of symptoms. 13:35 Method Of Arrival: Ambulatory ap3 13:35 Acuity: JONNY 3 ap3 Triage Assessment: 13:40 General: Appears distressed, Behavior is cooperative, anxious. Pain: Complains of pain ap3 in generalized body pain Pain currently is 9 out of 10 on a pain scale. Neuro: Oriented to person, place, time, situation, Gait is steady, Speech is normal. Cardiovascular: Patient's skin is warm and dry. Respiratory: Airway is patent Respiratory effort is even, unlabored, Respiratory pattern is regular, symmetrical. GI: Reports nausea, vomiting. 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 - Social history:: Smoking status: Reported history of juuling and/or vaping. Patient uses street drugs, fentanyl . - Family history:: not pertinent. - Hospitalizations: : No recent hospitalization is reported. Screenin:39 Abuse screen: Denies threats or abuse. Nutritional screening: No deficits noted. ap3 Tuberculosis screening: No symptoms or risk factors identified. 14:20 [facility] ED Fall Risk Assessment (Adult) History of falling in the last 3 months, ap3 including since admission No falls in past 3 months (0 pts). Vital Signs: 13:35 BP 116 / 85; Pulse 98; Resp 19; Temp 98.2; Pulse Ox 100% ; Weight 50.8 kg; Height 5 ft. ap3 1 in. ; Pain 9/10; 13:35 Body Mass Index 21.16 (50.80 kg, 154.94 cm) ap3 13:35 Pain Scale: Adult ap3 ED Course: 13:19 Patient arrived in ED. rg4 13:38 Triage completed. ap3 13:39 Arm band placed on right wrist. ap3 13:40 Remi Fernández MD is Attending Physician. rn 14:19 Michelle Nuñez RN is Primary Nurse. ap3 14:19 Patient has correct armband on for positive identification. ap3 14:19 No provider procedures requiring assistance completed. Patient did not have IV access ap3 during this emergency room visit. Administered Medications: No medications were administered Medication: 14:20 VIS not applicable for this client. ap3 Outcome: 14:19 Discharge ordered by . rn 14:20 Discharged to home ambulatory, with family. ap3 14:20 Condition: good 14:20 Discharge instructions given to patient, Instructed on discharge instructions, follow up and referral plans. medication usage, Demonstrated understanding of instructions, follow-up care, medications, Prescriptions given X 1. 14:20 Patient left the ED. ap3 Signatures: Remi Fernández MD MD rn Garcia, Rubi 4 Michelle Nuñez RN RN ap3
[2022-07-16 14:32] VITALS: BP 116/85; TEMP 98.2; O2SAT 100
== END 2022-07-16 14:20 | disposition home or self-care (01) ==
LOC: ER 13:17
DX: F11.23 Opioid dependence with withdrawal (principal)
CPT/HCPCS: 99283

== ENCOUNTER 2022-07-20 15:32 | Emergency (ER) | payer OTHER ==
[2022-07-20 16:34] LABS: Absolute Lymphocytes (CBC) 1.3 K/uL (0.7-4.9); Hematocrit 35.5 % (36.0-45.0); Lymphocytes % 18.2 % (15.3-44.8); MCV 76.3 fL (80-100); MPV 9.2 fL (7.6-11.3); RBC Red Blood Cell Count 4.66 M/uL (3.86-4.86)
[2022-07-20 16:34] LABS: Specific Gravity 1.013 (1.005-1.030)
[2022-07-20] MEDS ORDERED: NA CHLORIDE 0.9% 1,000 ML ONE (16:34)
[2022-07-20] MEDS ORDERED: DIPHENHYDRAMINE 50 MG/ML VIAL ONE (16:34)
[2022-07-20] MEDS ORDERED: METOCLOPRAMIDE 10 MG/2mL INJ ONE (16:34)
[2022-07-20 16:36] LABS: Specific Gravity 1.013 (1.005-1.030); Urine Bacteria None Seen /HPF (<20); Urine Bilirubin NEGATIVE (Negative); Urine Blood 2+ (Negative); Urine Clarity Clear (Clear); Urine Color Colorless (Yellow); Urine Glucose NEGATIVE (Negative); Urine Mucus 1+ /HPF (None Seen); Urine Protein NEGATIVE (Negative); Urine RBC <5 /HPF (None Seen); Urine Urobilinogen Normal (Normal); Urine pH 6.5 (5.0-7.0)
[2022-07-20 16:40] LABS: Barbiturates NEGATIVE (NEGATIVE); Benzodiazepines NEGATIVE (NEGATIVE); Cocaine NEGATIVE (NEGATIVE); METHAMPHETAM NEGATIVE (NEGATIVE); Methadone NEGATIVE (NEGATIVE); Opiates NEGATIVE (NEGATIVE); Phencyclidine NEGATIVE (NEGATIVE); THC Cannibis POSITIVE (NEGATIVE)
[2022-07-20 17:02] LABS: Albumin 4.5 g/dL (3.4-5.0); Bilirubin Direct 0.1 mg/dL (0-0.2); Bilirubin Total 0.4 mg/dL (0.2-1.0); Potassium 3.6 mEq/L (3.5-5.1); Protein, Total 8.3 g/dL (6.4-8.2)
[2022-07-20 17:04] LABS: Protime INR 1.11
[2022-07-20] MEDS ORDERED: ACETAMINOPHEN 325 MG TABLET ONE (18:22)
--- NOTE | 2022-07-20 18:24 | EDPHYS ---
Physician Documentation [facility] Name: Yen Rojas Age: 22 yrs Sex: Female : 2000 Arrival Date: 07/20/2022 Time: 15:32 Bed 15 Private MD: ED Physician Jeff Palmer HPI: 07/20 15:45 This 22 yrs old Female presents to ER via Ambulatory with complaints of WITHDRAWLS. cp 15:45 The patient presents to the emergency department with a history of substance abuse, cp Type: illegal Percocet, last use 2 days ago. 15:45 Associated signs and symptoms: Pertinent positives; abdominal pain, chest pain, nausea, cp substance abuse, vomiting, Pertinent negatives: fever, hallucinations, suicide ideation. Severity of symptoms: in the emergency department the symptoms are unchanged despite home interventions. 15:45 Patient is a 22-year-old female who returns to the emergency department after being cp seen on 07-16-2022 for withdrawals from illegally obtained street Percocet. Patient presents today with complaints of pain all over, chest pain and nausea with vomiting. Patient reports she last obtained and used street Percocet 2 days ago. 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 - Social history:: Smoking status: Reported history of juuling and/or vaping. ROS: 15:50 Constitutional: Positive for body aches, poor PO intake, Negative for fever. cp 15:50 Respiratory: Negative for cough, shortness of breath, wheezing. cp 15:50 Abdomen/GI: Positive for nausea and vomiting. 15:50 Eyes: Negative for injury, pain, redness, and discharge. cp 15:50 ENT: Negative for drainage from ear(s), ear pain, sore throat, difficulty swallowing, difficulty handling secretions. 15:50 Cardiovascular: Positive for chest pain, Negative for edema. 15:50 Neuro: Negative for altered mental status, syncope, weakness. 15:50 All other systems are negative. Exam: 15:55 Constitutional: The patient appears in no acute distress, alert, awake, non-toxic, well cp developed, well nourished. 15:55 Head/Face: Normocephalic, atraumatic. cp 15:55 Eyes: Periorbital structures: appear normal, Pupils: equal, round, and reactive to light and accomodation, Extraocular movements: intact throughout, Conjunctiva: normal, no exudate, no injection, Sclera: no appreciated abnormality, Lids and lashes: appear normal, bilaterally. 15:55 ENT: External ear(s): are unremarkable, Nose: is normal, Mouth: Lips: moist, Oral mucosa: pink and intact, moist, Posterior pharynx: is normal, airway is patent, no erythema, no exudate. 15:55 Neck: ROM/movement: is normal, is supple, without pain, no range of motions limitations. 15:55 Chest/axilla: Inspection: normal. 15:55 Cardiovascular: Rate: tachycardic, Rhythm: regular. 15:55 Respiratory: the patient does not display signs of respiratory distress, Respirations: normal, no use of accessory muscles, no retractions, labored breathing, is not present, Breath sounds: are clear throughout, no decreased breath sounds, no stridor, no wheezing. 15:55 Abdomen/GI: Inspection: abdomen appears normal, Palpation: abdomen is soft and non-tender, in all quadrants. 15:55 Neuro: Orientation: to person, place \T\ time. Mentation: is normal, Cerebellar function: is grossly normal, Motor: moves all fours, strength is normal, Sensation: is normal, Gait: is steady, at a normal pace, without difficulty. Vital Signs: 15:39 BP 098 / 1; Pulse 101; Resp 16; Temp 98.2; Pulse Ox 100% on R/A; Weight 50.8 kg; Height hb 5 ft. 1 in. ; Pain 10/10; 16:13 BP 117 / 70; Pulse 91; Resp 17; Temp 99(O); Pulse Ox 99% on R/A; kr3 18:54 BP 112 / 68; Pulse 89; Resp 18; Pulse Ox 99% on R/A; kr3 15:39 Body Mass Index 21.16 (50.80 kg, 154.94 cm) hb 15:39 Pain Scale: Adult hb MDM: 15:51 Patient medically screened. cp 18:23 Data reviewed: vital signs, nurses notes, lab test result(s), EKG, and as a result, I cp will discharge patient. 18:23 Differential diagnosis: drug withdrawal. electrolyte abnormality, acute VA, cardiac cp arrythmia. Consideration of Admission/Observation Escalation of care including admission/observation considered. I considered the following discharge prescriptions or medication management in the emergency department Medications were administered in the Emergency Department. See MAR. Counseling: I had a detailed discussion with the patient and/or guardian regarding: the historical points, exam findings, and any diagnostic results supporting the discharge/admit diagnosis, lab results, to return to the emergency department if symptoms worsen or persist or if there are any questions or concerns that arise at home. Response to treatment: the patient's symptoms have markedly improved after treatment, and as a result, I will discharge patient. 07/20 15:44 Order name: Acetaminophen; Complete Time: 17:59 cp 07/20 15:44 Order name: Basic Metabolic Panel; Complete Time: 17:59 cp 07/20 15:44 Order name: CBC with Diff; Complete Time: 17:59 cp 07/20 18:00 Interpretation: Normal except: HGB 11.4; HCT 35.5; MCV 76.3; MCH 24.4; RDW 15.6; BASO% cp 2.2. 07/20 15:44 Order name: ETOH Level; Complete Time: 17:59 cp 07/20 15:44 Order name: Hepatic Function; Complete Time: 17:59 cp 07/20 18:00 Interpretation: Normal except: TP 8.3; GLOB 3.8. cp 07/20 15:44 Order name: PT-INR; Complete Time: 17:59 cp 07/20 15:44 Order name: Test, Urine; Complete Time: 17:59 cp 07/20 15:44 Order name: Ptt, Activated; Complete Time: 17:59 cp 07/20 15:44 Order name: Salicylate; Complete Time: 17:59 cp 07/20 15:44 Order name: Urinalysis w/ reflexes; Complete Time: 17:59 cp 07/20 15:44 Order name: Urine Drug Screen; Complete Time: 17:59 cp 07/20 15:44 Order name: EKG; Complete Time: 15:45 cp 07/20 16:32 Order name: Diet Finger Food; Complete Time: 16:33 mm9 04/29 15:44 Order name: EKG - Nurse/Tech; Complete Time: 16:32 cp 07/20 15:44 Order name: IV Saline Lock; Complete Time: 16:20 cp 07/20 15:44 Order name: Labs collected and sent; Complete Time: 16:20 cp 07/20 15:44 Order name: Suicide Screening ([place]); Complete Time: 16:51 cp Administered Medications: 16:46 Drug: diphenhydrAMINE IVP 12.5 mg Route: IVP; Site: right antecubital; kr3 18:56 Follow up: Response: No adverse reaction kr3 16:47 Drug: NS 0.9% IV 500 ml Route: IV; Rate: bolus; Site: right antecubital; kr3 18:56 Follow up: Response: No adverse reaction; IV Status: Completed infusion; IV Intake: kr3 500ml 16:47 Drug: NS 0.9% IV 500 ml Route: IV; Rate: 125 ml/hr; Site: right antecubital; kr3 18:56 Follow up: Response: No adverse reaction; IV Status: Completed infusion; IV Intake: kr3 500ml 16:47 Drug: metoCLOPramide IVP 10 mg Route: IVP; Site: right antecubital; kr3 18:56 Follow up: Response: No adverse reaction kr3 Disposition: 20:16 Co-signature as Attending Physician, Jeff Palmer DO I was immediately available on-site ms3 in the Emergency Department for consultation in the care of the patient. Disposition Summary: 07/20/22 18:24 Discharge Ordered Location: Home cp Problem: an ongoing problem cp Symptoms: have improved cp Condition: Stable cp Diagnosis - Acute pain, not elsewhere classified cp - Nausea cp Followup: cp - With: Private Physician - When: 1 - 2 days - Reason: Recheck today's complaints Discharge Instructions: - Discharge Summary Sheet cp - Nausea, Adult cp - Acute Pain, Adult cp Forms: - Medication Reconciliation Form cp - Thank You Letter cp - Antibiotic Education cp - Prescription Opioid Use cp Prescriptions: - Zofran 4 mg Oral Tablet - take 1 tablet by ORAL route every 12 hours As needed; 20 tablet; Refills: 0, cp Product Selection Permitted Signatures: [facility] Quique Michel PA PA cp Heena Martin RN RN Jeff Mathur, DO ms3 Priyanka Houston RN RN kr3 Corrections: (The following items were deleted from the chart) 18:25 18:24 Nausea with vomiting, unspecified cp cp
--- NOTE | 2022-07-20 18:24 | ER ---
Nurse's Notes [facility] Name: Yen Rojas Age: 22 yrs Sex: Female : 2000 Arrival Date: 07/20/2022 Time: 15:32 Bed 15 Private MD: Diagnosis: Acute pain, not elsewhere classified;Nausea Presentation: 07/20 15:37 Chief complaint: Recently seen in ED for opiate withdrawal, reports N/D and pain all hb over, requesting refill on buprenorphine. 15:39 Coronavirus screen: At this time, the client does not indicate any symptoms associated hb with coronavirus-19. Ebola Screen: No symptoms or risks identified at this time. Initial Sepsis Screen: Does the patient meet any 2 criteria? No. Patient's initial sepsis screen is negative. Does the patient have a suspected source of infection? No. Patient's initial sepsis screen is negative. Risk Assessment: Do you want to hurt yourself or someone else? Patient reports no desire to harm self or others. Onset of symptoms was July 20, 2022. 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 - Social history:: Smoking status: Reported history of juuling and/or vaping. Screenin:54 [facility] ED Fall Risk Assessment (Adult) History of falling in the last 3 months, kr3 including since admission No falls in past 3 months (0 pts) Confusion or Disorientation No (0 pts) Intoxicated or Sedated No (0 pts) Impaired Gait No (0 pts) Mobility Assist Device Used No (0 pt) Altered Elimination No (0 pt) Score/Fall Risk Level 0 - 2 = Low Risk Oriented to surroundings, Maintained a safe environment, Educated pt \T\ family on fall prevention, incl call for assistance when getting out of bed, Assessed \T\ reinforced patient's understanding of fall precautions, Hourly rounding (assess needs \T\ fall precautionary measures) done. Abuse screen: Denies threats or abuse. Nutritional screening: No deficits noted. Tuberculosis screening: No symptoms or risk factors identified. Assessment: 16:47 General: Appears in no apparent distress. uncomfortable, Behavior is cooperative, kr3 agitated. Pain: Complains of pain in all over body. Neuro: Level of Consciousness is awake, alert, obeys commands, Oriented to person, place, time, situation. Cardiovascular: Patient's skin is warm and dry. Respiratory: Airway is patent Respiratory effort is even, unlabored, Respiratory pattern is regular, symmetrical. GI: No signs and/or symptoms were reported involving the gastrointestinal system. : No signs and/or symptoms were reported regarding the genitourinary system. EENT: No signs and/or symptoms were reported regarding the EENT system. Derm: No signs and/or symptoms reported regarding the dermatologic system. Musculoskeletal: No signs and/or symptoms reported regarding the musculoskeletal system. 17:50 Reassessment: Patient and/or family updated on plan of care and expected duration. Pain kr3 level reassessed. 18:53 Reassessment: Patient and/or family updated on plan of care and expected duration. Pain kr3 level reassessed. Vital Signs: 15:39 BP 098 / 1; Pulse 101; Resp 16; Temp 98.2; Pulse Ox 100% on R/A; Weight 50.8 kg; Height hb 5 ft. 1 in. ; Pain 10/10; 16:13 BP 117 / 70; Pulse 91; Resp 17; Temp 99(O); Pulse Ox 99% on R/A; kr3 18:54 BP 112 / 68; Pulse 89; Resp 18; Pulse Ox 99% on R/A; kr3 15:39 Body Mass Index 21.16 (50.80 kg, 154.94 cm) hb 15:39 Pain Scale: Adult hb ED Course: 15:33 Patient arrived in ED. ts1 15:37 Quique Neal PA is PHCP. cp 15:37 Jeff Palmer DO is Attending Physician. cp 15:40 Triage completed. hb 15:41 Arm band placed on. hb 15:42 Priyanka Houston, ANIYAH is Primary Nurse. kr3 16:19 Inserted saline lock: 20 gauge in right antecubital area, using aseptic technique. zm Blood collected. 16:20 Acetaminophen Sent. zm 16:20 Basic Metabolic Panel Sent. zm 16:20 CBC with Diff Sent. zm 16:20 ETOH Level Sent. zm 16:20 Hepatic Function Sent. zm 16:20 PT-INR Sent. zm 16:20 Test, Urine Sent. zm 16:20 Ptt, Activated Sent. zm 16:20 Salicylate Sent. zm 16:20 Urinalysis w/ reflexes Sent. zm 16:20 Urine Drug Screen Sent. zm 16:32 ETOH Level Sent. mm9 16:32 Acetaminophen Sent. mm9 16:32 Basic Metabolic Panel Sent. mm9 16:32 CBC with Diff Sent. mm9 16:32 Hepatic Function Sent. mm9 16:32 PT-INR Sent. mm9 16:32 Test, Urine Sent. mm9 16:32 Ptt, Activated Sent. mm9 16:32 Salicylate Sent. mm9 16:33 Patient has correct armband on for positive identification. Placed in gown. Bed in low mm9 position. Call light in reach. Warm blanket given. Diet: FINGER FOOD. Pulse ox on. NIBP on. 16:33 Urine Drug Screen Sent. mm9 16:33 Urinalysis w/ reflexes Sent. mm9 18:55 No provider procedures requiring assistance completed. IV discontinued, intact, kr3 bleeding controlled, No redness/swelling at site. Pressure dressing applied. Administered Medications: 16:46 Drug: diphenhydrAMINE IVP 12.5 mg Route: IVP; Site: right antecubital; kr3 18:56 Follow up: Response: No adverse reaction kr3 16:47 Drug: NS 0.9% IV 500 ml Route: IV; Rate: bolus; Site: right antecubital; kr3 18:56 Follow up: Response: No adverse reaction; IV Status: Completed infusion; IV Intake: kr3 500ml 16:47 Drug: NS 0.9% IV 500 ml Route: IV; Rate: 125 ml/hr; Site: right antecubital; kr3 18:56 Follow up: Response: No adverse reaction; IV Status: Completed infusion; IV Intake: kr3 500ml 16:47 Drug: metoCLOPramide IVP 10 mg Route: IVP; Site: right antecubital; kr3 18:56 Follow up: Response: No adverse reaction kr3 Medication: 18:55 VIS not applicable for this client. kr3 Intake: 18:56 IV: 500ml; Total: 500ml. kr3 18:56 IV: 500ml; Total: 1000ml. kr3 Outcome: 18:24 Discharge ordered by . cp 18:55 Discharged to home ambulatory. kr3 18:55 Condition: stable 18:55 Discharge instructions given to patient, Instructed on discharge instructions, follow up and referral plans. following up with a drug rehabilitation facility 18:56 Patient left the ED. kr3 Signatures: Quique Neal PA PA cp Baxter, Heather, RN RN Smiley Hickey Kelley, RN RN kr3 Kaylene Hickey 9 Niki Griffin PAS PAS ts1 Corrections: (The following items were deleted from the chart) 15:40 15:37 Chief complaint: Recently seen in ED for opiate withdrawal, reports N/D and pain hb all over, requesting refill on buporphen hb 16:15 16:13 BP 117 / 70; Pulse 91bpm; Resp 17bpm; Pulse Ox 99% RA; kr3 kr3
[2022-07-20 19:02] VITALS: TEMP 99; O2SAT 99
[2022-07-20 19:04] VITALS: BP 112/68
== END 2022-07-20 18:56 | disposition home or self-care (01) ==
LOC: ER 15:32
DX: R52 Pain, unspecified (principal); R11.0 Nausea; R07.9 Chest pain, unspecified; Z88.0 Allergy status to penicillin
CPT/HCPCS: 85025; 81001; 80048; 36415; 81025; 85610; 80076; 85730; 80307; J2765; J1200; J7030; G0480 ×3; 96361; 96374; 96375; 99284